=== PATIENT | female | born 1970 | race Caucasian/White ===

== ENCOUNTER → 2018-01-20 | Outpatient (CLI) | payer OTHER ==
[~2018-01-20] MED LIST: DEXILANT60 MG PO; FLONASE 0.05%50 MCG NASAL; KLOR-CON 1010 MEQ PO; LIPITOR 20 MG T20 M1 PO; LISINOPRIL10 MG PO; TRAZODONE HCL100 MG PO; VITAMIN D5000 UNIT PO; XANAX1 MG PO; ZOLPIDEM TARTRA10 MG PO
[2018-01-20 11:34] LABS: ABSOLUTE BASOPHILS 0.1 thou/uL (0.0-0.2); ABSOLUTE EOSINOPHILS 0.1 thou/uL (0.0-0.7); ABSOLUTE LYMPHOCYTES 2.5 thou/uL (0.8-5.3); ABSOLUTE MONOCYTES 0.5 thou/uL (0.0-1.2); BASOPHILS 1.1 %; EOSINOPHILS 1.9 %; HEMATOCRIT 39.3 % (37.0-47.0); HEMOGLOBIN 13.3 gm/dL (12.0-15.0); LYMPHOCYTES 40.1 %; MCH 31.5 pg (26.0-34.0); MCHC 33.7 g/dL (28.0-37.0); MCV 93.4 fL (80.0-100.0); MONOCYTES 8.4 %; MPV 8.1 fl. (7.2-11.1); NUCLEATED RBCS 0 /100WBC; PLATELET COUNT* 450 thou/uL (150-400); POLYS 48.5 %; RBC 4.21 mil/uL (4.20-5.00); RDW-CV 13.9 % (10.5-14.5); WBC 6.3 thou/uL (4.0-11.0)
[2018-01-20 11:45] LABS: ALBUMIN 3.8 g/dL (3.4-5.0); CALCIUM 8.8 mg/dL (8.5-10.1); CREATININE 0.8 mg/dL (0.6-1.3); POTASSIUM 3.5 mmol/L (3.5-5.1); TOTAL BILIRUBIN 0.4 mg/dL (<0.1-1.0); TOTAL PROTEIN 7.6 g/dL (6.4-8.2)
[2018-01-20 12:05] LABS: PLATELET ESTIMATE INCREASED
[2018-01-20 12:08] LABS: ANISOCYTOSIS 1+; POIKILOCYTOSIS 1+
[2018-01-20 12:30] LABS: ESR (SEDRATE) 16 mm/hr (0-20)
[2018-01-21 12:05] LABS: HEMOGLOBIN 12.9 g/dL (11.1-15.9)
--- NOTE | 2018-01-21 19:41 | CON ---
[address] [address] CONSULTATION Name: AZEB STEWART Room: [facility]#: [id number] Admission: 01/20/18 Attend Phys: Maverick Lopes MD Discharge: Date of : 68 Report #: [id number] THIS REPORT FOR: //name// CC: Mara Lopes DATE OF SERVICE: 01/20/2018 HEMATOLOGY CLINIC REFERRING PHYSICIAN: Dr. Mara Salvador. REASON FOR CONSULTATION: Thrombocytosis. SUBJECTIVE: A 48-year-old female who is being evaluated because of persistent thrombocytosis. The patient reported moderate fatigue; however, she denies any lightheadedness or any other constitutional symptoms like fever, night sweats, weight loss. She denies any abdominal pain, early satiety. No nausea, no vomiting. The patient denies any recent surgery or chronic infection or inflammatory conditions. The patient continues to have menstrual periods; however, she reported that they were not heavy. Reviewing her previous labs, which was available at [facility] records, back between 2007 and 2008 her platelet count were elevated between 440-429 and most recently on 01/12/2018, her platelet count was 521. However, her hemoglobin and WBC were within normal limits. REVIEW OF SYSTEMS: All systems were reviewed, was negative except the above. PAST MEDICAL HISTORY: Hypertension, benign essential; dyslipidemia, and GERD. PAST SURGICAL HISTORY: Two in 1996 and 2000, staph infection in 2007, and tubal ligation. MEDICATIONS: Claritin-D 1 tab every 12 hours, fluticasone 50 mcg, potassium 10 mEq p.o. daily, ranitidine 150 mg p.o. daily, Zolpidem 10 mg p.o. daily, alprazolam 1 mg p.o. daily, trazodone 100 mg p.o. at bedtime, lisinopril/hydrochlorothiazide 10/12.5 mg p.o. daily, Dexilant 60 mg p.o. daily, atorvastatin 20 mg p.o. daily. FAMILY HISTORY: Grandfather with breast cancer at the age of 70s, second grandfather with colon cancer. SOCIAL HISTORY: She is still smoking; however, she started at the age of 18 and tried to quit twice. [place] [address] CONSULTATION Name: AZEB STEWART Room: [facility]#: [id number] Admission: 01/20/18 Attend Phys: Maverick Lopes MD Discharge: Date of : 68 Report #: [id number] GYNECOLOGICAL HISTORY: Age of first period 13. Three pregnancies, three deliveries, no miscarriages. She took oral contraceptives for 7 years, but not anymore. ALLERGIES: No known allergies. PHYSICAL EXAMINATION: VITAL SIGNS: Today, blood pressure is 104/72, pulse 77, respirations 16, satting 98% on room air, temperature is 97.1. GENERAL: The patient was sitting in chair, was not in acute distress. LUNGS: Clear to auscultation bilaterally. HEART: Regular rate and rhythm, S1, S2 within normal limits. ABDOMEN: Soft, nontender, nondistended, bowel sounds positive. No hepatosplenomegaly. EXTREMITIES: No edema, no cyanosis, no clubbing. LABORATORY DATA: Most recent labs on 01/12/2018, WBC 7.2, hemoglobin is 11.7, platelet count 521. Normal differential. ASSESSMENT AND PLAN: A 48-year-old female who was evaluated because of thrombocytosis; however, it has been persistent based on her labs back in 2008 and most recently it was 521,000. The patient is asymptomatic except for moderate fatigue. She continues to have menstrual periods. Secondary reactive causes like recent surgery or frequent infection is not evident at this point. I would like to obtain ferritin and iron profile along with inflammatory markers. At the same time, I would like to rule out any possibility of myeloproliferative neoplasm including ET, PV and CML. We will obtain mutational analysis including JAK2, MPL, BCR-ABL, calreticulin mutations along with a bone marrow biopsy. The patient was agreeable to proceed with that. Follow up in 2 weeks to discuss the results, and discuss the results of her blood work and bone marrow biopsy. <ELECTRONICALLY SIGNED> By: Maverick Lopes MD 01/21/18 1941 [id number] [id number] Lopes MD /nt
--- NOTE | 2018-01-29 16:07 | PATH ---
[address] [address] PATHOLOGY RPT PROCEDURE Name: LUCIE STEWART Room: [facility]#: [id number] Admission: 01/20/18 Date of : 68 Discharge: Report #: [id number] Path Case #: [id number] [facility] Accession Number: [id number] . 01 Material submitted: . PART A: BM BX PART B: BM CLOT PART C: BM ASP PART D: PERIPHERAL SMEARS PART E: BM FLOW . 01 Clinician provided ICD-10: D47.3 . 01 Clinical history: . 48 year old woman with thrombocytosis. . 02 Diagnosis: Bone marrow aspirate, biopsy, cell clot and peripheral blood: - Peripheral blood with borderline mild thrombocytosis. - Normocellular bone marrow with trilineage hematopoiesis, mild (no significant) dyspoiesis and no evidence of lymphoma or acute leukemia. (See comment) - No stainable iron. LBQ/01/27/2018 . 02 Comment: Overall, the bone marrow is normocellular for the patient's age with trilineage hematopoiesis, mild (no significant) dyspoiesis and no evidence of lymphoma or acute leukemia. The minimal dyspoiesis does not meet the morphologic criteria for myelodysplasia. Of note, no stainable iron is identified. Correlation with clinical history, additional laboratory data and cytogenetics is recommended. (CLW/db; 01/27/2018) . 02 Electronically signed: . Renetta Rudolph MD, Pathologist NPI- [id number] . 01 Gross description: . A. The specimen is received in formalin, labeled "Lucie Stewart, BM core" and consists of a miller bone core measuring 1.5 cm in length and 0.2 cm in diameter. It is entirely submitted in A1 following decalcification. . B. The specimen is received in formalin, labeled "Lucie Stewart, BM clot" and consists of blood clot measuring 4.2 x 2.5 x 0.4 cm which is entirely submitted in B1-B2. (SDY; 01/23/2018) [place] [address] PATHOLOGY RPT PROCEDURE Name: LUCIE STEWART Room: [facility]#: [id number] Admission: 01/20/18 Date of : 68 Discharge: Report #: [id number] Path Case #: [id number] U/SYU . 02 Microscopic: . CBC Data (01/22/18): WBC 5,700 /uL, RBC 4.18, hemoglobin 12.9 g/dL, hematocrit 39.2%, MCV 93.7 fL, MCH 30.8 pg, MCHC 32.9 g/dL, RDW 13.6%, and platelet count 391,000 per uL. White blood cell differential: segs 48%, lymphs 46%, monos 4%, eos 1%, and basos 1%. . Peripheral Blood Smear: Cytomorphological examination of the Tanner's stained peripheral blood smear confirms the provided data. Red blood cells are normocytic and are without significant anisopoikilocytosis. White blood cells are predominantly granulocytes and lymphocytes. Granulocytes are predominantly segmented neutrophils and are without significant dyspoiesis or significant left shift. Lymphocytes are predominantly small, round, and mature appearing with condensed chromatin and scant cytoplasm with admixed large granular lymphocytes and reactive appearing lymphocytes. Monocytes are mature. Platelets are adequate (mildly increased) in number and mainly normal in morphology with rare larger platelets noted. . Aspirate Smears: Cytomorphological examination of the Tanner's stained aspirate smears shows spicules present. The overall cellularity is approximately 50%. The myeloid to erythroid ratio is 2.5:1. Full myeloid maturation is identified and is without significant dyspoiesis. Erythroid maturation is mildly dyserythropoietic with occasional irregular nuclear contours and binucleate forms. In a 500 cell differential, there are 1% blasts (no Celi rods are seen), 58% more differentiated myeloids, 24% erythroid precursors, 16% lymphocytes and 1% plasma cells. Megakaryocytes are proportional in number and both normal and abnormal in morphology with variable sizes and nuclear abnormalities. No lymphoid aggregates or markedly atypical lymphoid cells are seen. Plasma cells are without atypia. Iron stain of the aspirate smear shows 0/4+ iron positivity with disrupted spicules present. No ringed sideroblasts are identified. . Core Biopsy and Cell Clot: The decalcified bone marrow core biopsy is adequate. The bone marrow is normocellular with an overall cellularity of approximately 50%. The myeloid to erythroid ratio is 2-3:1. Myeloid maturation is without significant dyspoiesis. Erythroid maturation is mildly dyserythropoietic. Megakaryocytes are normal in number and both normal and abnormal in morphology. No lymphoid aggregates or markedly atypical lymphoid cells are seen. Bony trabeculae and blood vessels are unremarkable. The cell clot has rare spicules present that are similar in cellularity and differential morphology as previously described. . Properly controlled special stains are performed. . Iron (Block A1) - 0/4+ iron positivity (no stainable iron) [place] [address] PATHOLOGY RPT PROCEDURE Name: LUCIE STEWART Room: [facility]#: [id number] Admission: 01/20/18 Date of : 68 Discharge: Report #: [id number] Path Case #: [id number] Reticulin (Block A1) - No significant reticulin fibrosis Iron (Block B1 and B2) - 0/4+ iron positivity (no stainable iron) . Flow Cytometry: Flow cytometric immunophenotypic analysis was performed at [facility]. The diagnosis is "no diagnostic immunophenotypic abnormalities detected." There are 31.7% lymphocytes. Of the lymphocytes, there are 75% T-cells with a CD4/CD8 ratio of 2.7 and no aberrant T-cell antigen expression and 17% polyclonal mature B-cells (kappa lambda ratio of 1.7). There are 1.2% CD34 positive cells (blasts) and 1.6% precursors B cells. No immunophenotypic evidence of a lymphoproliferative disorder, acute leukemia, increase in blasts, or increased plasma cells is identified. Please see separate flow cytometry report from [facility] ([id number]). . Cytogenetics: Cytogenetic chromosomal analysis is pending at [facility] ([id number]). . 02 Pathologist provided ICD-10: D47.3 . 02 CPT . 403855, 550273, 591190, 197147, 355165, 572984, 116996, 954398, 010138, 348295 Performed at: 01 [facility] [address] [place] [address] [id number] MD Scott Haddad MD Phone: [phone] Performed at: 02 [facility] [address] [id number] MD Richy Green MD Phone: [phone]
== END ==
LOC: M.RTH 04:31
PROVIDERS: Internal Medicine
DX: D47.3 Essential (hemorrhagic) thrombocythemia (principal); I10 Essential (primary) hypertension; E78.5 Hyperlipidemia, unspecified; K21.9 Gastro-esophageal reflux disease without esophagitis

== ENCOUNTER → 2018-01-22 | Outpatient (CLI) | payer OTHER ==
[~2018-01-22] VITALS: Ht 165.1 cm; Wt 57.6 kg
[2018-01-22 10:20] VITALS: BP 119/66
[2018-01-22 11:23] LABS: APTT 24.6 Seconds (25.0-31.3); INR 1.1; PROTIME 10.6 Seconds (9.20-11.50)
[2018-01-22 11:29] LABS: HEMATOCRIT 39.2 % (37.0-47.0); HEMOGLOBIN 12.9 gm/dL (12.0-15.0); MCH 30.8 pg (26.0-34.0); MCHC 32.9 g/dL (28.0-37.0); MCV 93.7 fL (80.0-100.0); NUCLEATED RBCS 0 /100WBC; PLATELET COUNT* 391 thou/uL (150-400); RBC 4.18 mil/uL (4.20-5.00); RDW-CV 13.6 % (10.5-14.5); WBC 5.7 thou/uL (4.0-11.0)
[2018-01-22 11:50] LABS: ABSOLUTE BASOPHILS 0.1 thou/uL (0.0-0.2); ABSOLUTE EOSINOPHILS 0.1 thou/uL (0.0-0.7); ABSOLUTE LYMPHOCYTES 2.6 thou/uL (0.8-5.3); ABSOLUTE MONOCYTES 0.2 thou/uL (0.0-1.2); ABSOLUTE NEUTROPHILS 2.7 thou/uL (1.6-8.1); ANISOCYTOSIS 1+; PLATELET ESTIMATE ADEQUATE; POIKILOCYTOSIS 1+
[2018-01-22 12:30] VITALS: BP 105/57
== END ==
LOC: M.INT 10:05
PROVIDERS: Radiology Diagnostic Radiology
DX: D69.6 Thrombocytopenia, unspecified (principal); Z87.891 Personal history of nicotine dependence

== ENCOUNTER → 2018-02-03 | Outpatient (CLI) | payer OTHER ==
--- NOTE | 2018-02-04 08:06 | HEMONC ---
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 SUBJECTIVE: The patient presented today to discuss her workup. Myeloproliferative workup came back negative. Her JAK2 mutation negative. Calreticulin mutation and MPL came back negative, no evidence of BCR-ABL. I obtained a bone marrow biopsy, which showed no evidence of lymphoma or leukemia. However, it showed no stainable iron. We reviewed her iron profile, which showed ferritin of 18, which is on the low normal range. The patient never had a colonoscopy; however, I do suspect this could be explained by her previous menstrual periods and blood loss. REVIEW OF SYSTEMS: All system are reviewed and was negative except as above. PHYSICAL EXAMINATION: VITAL SIGNS: Blood pressure is 122/78, pulse 90, respirations 18, temperature is 97.2, saturations 98% on room air. GENERAL: The patient was sitting in a chair, was not in acute distress. LABORATORY DATA: Most recent labs on 01/22/2018, WBC 5.7, hemoglobin 12.9, platelets 391. ESR 16, creatinine 0.8. Ferritin 18 ng/mL. CRP less than 2. B12 of 564, folate 3.6, low. Bone marrow biopsy results showed a normocellular bone marrow with trilineage hematopoiesis, no significant dyspoiesis and no evidence of lymphoma or acute leukemia; however, there is no stainable iron. ASSESSMENT AND PLAN: A 48-year-old female who was evaluated because of thrombocythemia. Most likely this is reactive due to her iron deficiency; however, she does not have anemia at this point. A myeloproliferative workup came back negative including mutational studies and her bone marrow biopsy. She also had blood work, which revealed low folate serum level. RECOMMENDATIONS: 1. We will replace her iron and folate. We will evaluate overall tolerance. If not, we will switch to IV form. 2. We will refer to GI, Dr. Venegas/Dr. Acevedo for iron deficiency anemia workup. She never had a colonoscopy. I will defer to GI [place] [address] HEMATOLOGY ONCOLOGY NOTE Name: JOSÉ ANTONIO STEWARTRI Jacqueline Room: [facility]#: [id number] Admission: 02/03/18 Attend Phys: Maverick Lopes MD Discharge: Date of : 68 Report #: [id number] also is needed in addition to colonoscopy. We will follow up in 3 months with repeated CBC and iron profile. All questions have been answered. <ELECTRONICALLY SIGNED> By: aMverick Lopes MD 02/04/18 0806 1005 [id number] Lopes MD /nt
== END ==
LOC: M.RTH 04:21
DX: Z09 Encounter for follow-up examination after completed treatment for conditions other than malignant neoplasm (principal); D47.3 Essential (hemorrhagic) thrombocythemia

== ENCOUNTER → 2018-04-16 | Outpatient (CLI) | payer OTHER ==
[2018-04-16 15:50] LABS: ABSOLUTE BASOPHILS 0.1 thou/uL (0.0-0.2); ABSOLUTE EOSINOPHILS 0.2 thou/uL (0.0-0.7); ABSOLUTE LYMPHOCYTES 3.8 thou/uL (0.8-5.3); ABSOLUTE MONOCYTES 0.6 thou/uL (0.0-1.2); ABSOLUTE NEUTROPHILS 4.7 thou/uL (1.6-8.1); BASOPHILS 1.1 %; EOSINOPHILS 1.8 %; HEMATOCRIT 41.2 % (37.0-47.0); HEMOGLOBIN 14.1 gm/dL (12.0-15.0); LYMPHOCYTES 40.6 %; MCH 32.4 pg (26.0-34.0); MCHC 34.3 g/dL (28.0-37.0); MCV 94.6 fL (80.0-100.0); MONOCYTES 6.2 %; MPV 7.9 fl. (7.2-11.1); NUCLEATED RBCS 0 /100WBC; PLATELET COUNT* 372 thou/uL (150-400); POLYS 50.3 %; RBC 4.36 mil/uL (4.20-5.00); RDW-CV 14.3 % (10.5-14.5); WBC 9.3 thou/uL (4.0-11.0)
[2018-04-16 16:32] LABS: % SATURATION 42 % (20-39); IRON 126 ug/dL (50-175)
== END ==
LOC: M.LAB 15:33
PROVIDERS: Internal Medicine
DX: D47.3 Essential (hemorrhagic) thrombocythemia (principal)

== ENCOUNTER → 2018-08-11 | Outpatient (CLI) | payer OTHER ==
--- NOTE | 2018-08-12 15:44 | HEMONC ---
[address] [address] HEMATOLOGY ONCOLOGY NOTE Name: AZEB STEWART Room: [facility]#: [id number] Admission: 08/11/18 Attend Phys: Maverick Lopes MD Discharge: Date of : 68 Report #: [id number] THIS REPORT FOR: //name// CC: Maranatalya Salvador Maverick Lopes DATE OF SERVICE: 08/11/2018 REASON FOR CONSULTATION: Mild thrombocythemia. SUBJECTIVE: The patient presented today as a followup. She has been doing very well. She denies any acute complaints. No nausea, no vomiting, no abdominal pain. She continues to have a very light period. Previously back in January and April, her platelet count got normalized after she received oral iron; however, 3 days ago, her platelet count were marginally elevated at the level of 416, normal range 150-400; also, her iron studies showed improvement in her ferritin to the level of 44 ng/mL. REVIEW OF SYSTEMS: All systems were reviewed, it was negative except the above. PAST MEDICAL, SOCIAL AND FAMILY HISTORY: Unchanged from previous visits. PHYSICAL EXAMINATION: VITAL SIGNS: Today, blood pressure is 140/84, pulse is 87, respirations 16, temperature is 97.4, saturation is 95% on room air. GENERAL: The patient was sitting in chair, was not in acute distress. She is awake, alert, oriented x 3. Cranial nerves are grossly intact. LUNGS: Clear to auscultations bilaterally. No wheezing. No rales. HEART: Regular rate and rhythm. S1, S2 within normal limits. LABORATORY DATA: On 08/07/2018, WBC was 10.6, hemoglobin 13.3, platelets 416. Iron studies, TIBC 304, saturation is 21. Ferritin 44 mL. ASSESSMENT AND PLAN: A 48-year-old female who has been evaluated because of reactive thrombocythemia. She underwent a bone marrow biopsy, which was negative for myeloproliferative disorder; however, she had no stainable iron studies. The patient was started on oral iron. Her platelet count had normalized in 04/2018. At this point, repeated platelet count showed very mild marginal above normal range. I would like to continue to monitor the patient. We will obtain labs in 4 months and followup in 6 months. <ELECTRONICALLY SIGNED> By: Maverick Lopes MD 08/12/18 1544 0938 [id number] Lopes MD /nt
== END ==
LOC: M.RTH 04-28 09:30
DX: D47.3 Essential (hemorrhagic) thrombocythemia (principal)

== ENCOUNTER 2018-10-19 07:49 | Emergency (ER) | payer OTHER ==
[~2018-10-19] VITALS: Ht 165.1 cm; Wt 55.8 kg
[2018-10-19] MEDS ORDERED: IRON325 PO (08:01)
[2018-10-19] MEDS ORDERED: TRAZODONE HCL50 MG PO (08:01)
[2018-10-19] MEDS ORDERED: LISINOPRIL-HCT1 EACH PO (08:01)
[2018-10-19] MEDS ORDERED: ZYRTEC10 M2 PO (08:45)
[2018-10-19] MEDS ORDERED: MEDROL DOSPAK21 TA1 PO (08:45)
[2018-10-19 09:11] VITALS: BP 121/72
== END 2018-10-19 09:11 | disposition home or self-care (01) ==
LOC: M.ERS 07:49
DX: J45.901 Unspecified asthma with (acute) exacerbation (principal); F17.210 Nicotine dependence, cigarettes, uncomplicated; Z98.890 Other specified postprocedural states; Z88.5 Allergy status to narcotic agent

== ENCOUNTER → 2018-12-24 | Outpatient (CLI) | payer OTHER ==
[~2018-12-24] MED LIST changes: +IRON325 PO; +LISINOPRIL-HCT1 EACH PO; +MEDROL DOSPAK21 TA1 PO; +TRAZODONE HCL50 MG PO; +ZYRTEC10 M2 PO
[2018-12-24 12:49] LABS: ABSOLUTE BASOPHILS 0.1 thou/uL (0.0-0.2); ABSOLUTE EOSINOPHILS 0.1 thou/uL (0.0-0.7); ABSOLUTE LYMPHOCYTES 2.5 thou/uL (0.8-5.3); ABSOLUTE MONOCYTES 0.5 thou/uL (0.0-1.2); ABSOLUTE NEUTROPHILS 3.6 thou/uL (1.6-8.1); EOSINOPHILS 1.8 %; HEMATOCRIT 41.4 % (37.0-47.0); LYMPHOCYTES 36.7 %; MCH 32.1 pg (26.0-34.0); MCHC 33.8 g/dL (28.0-37.0); MCV 94.9 fL (80.0-100.0); MONOCYTES 6.7 %; MPV 7.8 fl. (7.2-11.1); NUCLEATED RBCS 0 /100WBC; PLATELET COUNT* 456 thou/uL (150-400); POLYS 53.8 %; RBC 4.36 mil/uL (4.20-5.00); RDW-CV 13.7 % (10.5-14.5); WBC 6.7 thou/uL (4.0-11.0)
[2018-12-24 13:25] LABS: % SATURATION 26 % (20-39); IRON 77 ug/dL (50-175)
== END ==
LOC: M.LAB 11:49
PROVIDERS: Internal Medicine
DX: D47.3 Essential (hemorrhagic) thrombocythemia (principal)

== ENCOUNTER → 2019-02-09 | Outpatient (CLI) | payer OTHER ==
--- NOTE | 2019-02-11 20:35 | HEMONC ---
[address] [address] HEMATOLOGY ONCOLOGY NOTE Name: AZEB STEWART Room: [facility]#: [id number] Admission: 02/09/19 Attend Phys: Maverick Lopes MD Discharge: Date of : 68 Report #: [id number] THIS REPORT FOR: //name// CC: Mara Lopes DATE OF SERVICE: 02/09/2019 CLINIC NOTE DIAGNOSIS: Mild thrombocythemia. SUBJECTIVE: The patient presented today as 6 months followup. She reported no active symptoms. However, she has been having some allergy symptoms. She had a very, very small lymph nodes enlargement of the right cervical area. Otherwise, she did not have any further menstrual periods. She continues to be on oral iron twice a day. REVIEW OF SYSTEMS: All systems reviewed. It was negative except the above. PAST MEDICAL HISTORY: Unchanged from last visit. SOCIAL HISTORY: Unchanged from last visit. FAMILY HISTORY: Unchanged from last visit. PHYSICAL EXAMINATION: VITAL SIGNS: Blood pressure is 130/87, pulse 73, respirations 18, temperature is 97.4 and saturations 98% on room air. GENERAL: The patient was sitting in chair, was not in acute distress. LUNGS: Clear to auscultations bilaterally. HEART: Regular rate and rhythm. S1, S2 within normal limits. ABDOMEN: Soft, nontender, nondistended. Bowel sounds positive. LABORATORY DATA: Platelet count 456, hemoglobin 14.0, ferritin 78, saturation 26. TIBC 299. ASSESSMENT AND PLAN: A 49-year-old female who has been diagnosed with a mild thrombocythemia. Bone marrow biopsy was negative for myeloproliferative neoplasm; however, she has no stainable iron studies. The patient has been on oral iron; however, her platelet count has not completely corrected. RECOMMENDATIONS: We will arrange for Feraheme intravenously [place] [address] HEMATOLOGY ONCOLOGY NOTE Name: TERRYAZEB A Room: [facility]#: [id number] Admission: 02/09/19 Attend Phys: Maverick Lopes MD Discharge: Date of : 68 Report #: [id number] labs in 6 weeks. Also, I advise the patient to monitor the very small lymph nodes in the right cervical area. <ELECTRONICALLY SIGNED> By: Maverick Lopes MD 02/11/19 2035 0953 1104Maverick Lopes MD /nt
== END ==
LOC: M.RTH 04:56
DX: D47.3 Essential (hemorrhagic) thrombocythemia (principal)

== ENCOUNTER → 2019-02-10 | Outpatient (CLI) | payer OTHER ==
[2019-02-10 08:20] VITALS: BP 122/74
[2019-02-10 10:05] VITALS: BP 118/68
--- NOTE | 2019-02-10 14:10 | NUR ---
ARRIVED AMBULATORY. MADE SELF COMFORTABLE IN RECLINER. INFUSION COMPLETED AND TOLERATED WELL. DENIES NEEDS OR QUESTIONS AT DISCHARGE.
== END ==
LOC: M.INFUS 05:23
DX: D47.3 Essential (hemorrhagic) thrombocythemia (principal)

== ENCOUNTER → 2019-02-17 | Outpatient (CLI) | payer OTHER ==
[2019-02-17 08:30] VITALS: BP 139/79
--- NOTE | 2019-02-17 08:30 | NUR ---
ARRIVED AMBULATORY. MADE SELF COMFORTABLE IN RECLINER. 22 GAUGE STARTED IN PT'S RIGHT FOREARM. PT TOLERATED INFUSION WELL. VOICES NO NEEDS OR CONCERNS AT DISCHARGE.
== END ==
LOC: M.INFUS 05:17
DX: D47.3 Essential (hemorrhagic) thrombocythemia (principal)

== ENCOUNTER → 2019-04-05 | Outpatient (CLI) | payer OTHER ==
[2019-04-05 11:02] LABS: ABSOLUTE BASOPHILS 0.1 thou/uL (0.0-0.2); ABSOLUTE EOSINOPHILS 0.1 thou/uL (0.0-0.7); ABSOLUTE LYMPHOCYTES 2.1 thou/uL (0.8-5.3); ABSOLUTE MONOCYTES 0.7 thou/uL (0.0-1.2); BASOPHILS 1.1 %; EOSINOPHILS 1.7 %; HEMATOCRIT 42.8 % (37.0-47.0); HEMOGLOBIN 14.5 gm/dL (12.0-15.0); LYMPHOCYTES 30.3 %; MCH 33.1 pg (26.0-34.0); MCHC 33.9 g/dL (28.0-37.0); MCV 97.5 fL (80.0-100.0); MONOCYTES 9.6 %; NUCLEATED RBCS 0 /100WBC; PLATELET COUNT* 474 thou/uL (150-400); POLYS 57.3 %; RDW-CV 13.9 % (10.5-14.5)
[2019-04-05 11:34] LABS: % SATURATION 37 % (20-39); IRON 96 ug/dL (50-175)
== END ==
LOC: M.LAB 10:26
PROVIDERS: Internal Medicine
DX: D47.3 Essential (hemorrhagic) thrombocythemia (principal)

== ENCOUNTER → 2019-06-23 | Outpatient (CLI) | payer OTHER ==
[2019-06-23 12:50] LABS: ABSOLUTE BASOPHILS 0.1 thou/uL (0.0-0.2); ABSOLUTE EOSINOPHILS 0.1 thou/uL (0.0-0.7); ABSOLUTE LYMPHOCYTES 2.7 thou/uL (0.8-5.3); ABSOLUTE MONOCYTES 0.6 thou/uL (0.0-1.2); ABSOLUTE NEUTROPHILS 5.4 thou/uL (1.6-8.1); BASOPHILS 1.1 %; EOSINOPHILS 1.5 %; HEMATOCRIT 41.6 % (37.0-47.0); HEMOGLOBIN 14.5 gm/dL (12.0-15.0); MCH 33.9 pg (26.0-34.0); MCHC 34.9 g/dL (28.0-37.0); MCV 97.1 fL (80.0-100.0); MONOCYTES 7.2 %; MPV 7.8 fl. (7.2-11.1); NUCLEATED RBCS 0 /100WBC; PLATELET COUNT* 365 thou/uL (150-400); POLYS 60.2 %; RBC 4.28 mil/uL (4.20-5.00); RDW-CV 13.2 % (10.5-14.5); WBC 8.9 thou/uL (4.0-11.0)
[2019-06-23 13:18] LABS: % SATURATION 43 % (20-39); IRON 119 ug/dL (50-175)
== END ==
LOC: M.LAB 12:23
PROVIDERS: Internal Medicine
DX: D47.3 Essential (hemorrhagic) thrombocythemia (principal)

== ENCOUNTER → 2019-07-13 | Outpatient (CLI) | payer OTHER ==
--- NOTE | ~2019-07-13 | HEMONC ---
[address] [address] HEMATOLOGY ONCOLOGY NOTE Name: AZEB STEWART ASHA Room: [facility].#: [id number] Admission: 07/13/19 Attend Phys: Maverick Lopes MD Discharge: Date of : 68 Report #: [id number] THIS REPORT FOR: //name// CC: Mara Lopes DATE OF SERVICE: 07/13/2019 CLINIC NOTE DIAGNOSIS: Reactive thrombocythemia. SUBJECTIVE: A 49-year-old female who has been previously evaluated because of mild thrombocythemia, which has been corrected. The patient received intravenous iron today. Today, she does not have any active symptoms. No fatigue, lightheadedness, nausea or vomiting. The patient denies any hematuria, epistaxis or black stool. REVIEW OF SYSTEMS: All systems were reviewed and it was negative except the above. PAST MEDICAL, SOCIAL, AND FAMILY HISTORY: Unchanged from last visit. PHYSICAL EXAMINATION: GENERAL: The patient was sitting in chair. She was not in acute distress. LUNGS: Clear to auscultations bilaterally. HEART: Regular rate and rhythm. S1, S2 within normal limits. ABDOMEN: Soft, nontender, nondistended, bowel sounds positive. LABORATORY DATA: On 06/23/2019, WBC 8.9, hemoglobin 14.5, platelets 365, within normal range. Her iron studies were reviewed, which showed ferritin of 299. TIBC 275. Iron 119, which was within normal range. ASSESSMENT AND PLAN: A 49-year-old female who has been diagnosed with mild thrombocythemia reactive to iron deficiency, which has been replaced. At this point, the patient continues to have no symptoms. Her platelet count has been corrected with a stable adequate iron studies. Follow up as needed. By: 1044 [id number] Lopes MD /nt
== END ==
LOC: M.RTH 06-29 09:00
DX: D47.3 Essential (hemorrhagic) thrombocythemia (principal)